=== PATIENT | female | born 1935 | race Caucasian/White ===

== ENCOUNTER → 2017-05-06 | Outpatient (CLI) | payer OTHER ==
[~2017-05-06] MED LIST: CALTRATE 600 +1 TAB PO; DYAZIDE 25 MG-31 CAP PO; FISH OIL 500MG500 MG PO; NEURONTIN100 MG PO; PRAVACHOL40 MG PO; SYNTHROID RP0.088 MG PO; VITAMIN D5000 I3 PO; VOLTAREN50 M1 PO; ZIAC 5 MG-6.25 MG PO
== END | disposition home or self-care (01) ==
LOC: US 18:31
DX: M79.605 Pain in left leg (principal)

== ENCOUNTER 2017-08-14 15:05 | Inpatient (IN) | payer OTHER ==
[~2017-08-14] VITALS: Ht 167.6 cm; Wt 105.0 kg
[~2017-08-14 15:05] MED LIST changes: -PRAVACHOL40 MG PO
[2017-08-14 15:16] VITALS: BP 210/110
[2017-08-14] MEDS ORDERED: PRAVACHOL40 MG PO (15:31)
[2017-08-14 16:28] LABS: BASO # 0.1 10*3/uL (0.0-0.1); BASO % 0.7 % (0.0-1.0); EOS # 0.1 10*3/uL (0.0-0.4); EOS % 1.5 % (1.0-4.0); HEMATOCRIT 46.9 % (37.0-47.0); HEMOGLOBIN 15.4 g/dl (12.0-16.0); LYMPH # 1.6 10*3/uL (1.3-4.4); LYMPH % 18.7 % (27.0-41.0); MEAN CELL VOLUME 92.3 fl (81.0-99.0); MEAN CORPUSCULAR HGB 30.3 pg (27.0-31.0); MEAN CORPUSCULAR HGB CONC 32.8 g/dl (33.0-37.0); MEAN PLATELET VOLUME 9.7 fl (9.6-12.3); MONO # 0.7 10*3/uL (0.1-1.0); MONO % 8.4 % (3.0-9.0); NEUT # 5.9 10*3/uL (2.3-7.9); NEUT % 70.3 % (47.0-73.0); PLATELET COUNT AUTOMATED 202 10*3/uL (130-400); RED BLOOD COUNT 5.08 10*6/uL (4.10-5.10); RED CELL DISTRI WIDTH 13.2 % (0-14.5); WHITE BLOOD COUNT 8.4 10*3/uL (4.8-10.8)
[2017-08-14 16:35] LABS: INTERNATIONAL NORM RATIO 0.9 (2.0-3.5)
[2017-08-14 16:44] LABS: ALBUMIN 3.7 gm/dl (3.1-4.5); ALKALINE PHOSPHATASE 55 U/L (45-117); BUN 25 mg/dl (7-24); CHLORIDE 105 mmol/L (98-107); CREATININE 0.98 mg/dL (0.55-1.02); LIPASE 147 U/L (73-393); MAGNESIUM 2.2 mg/dL (1.5-2.1); POTASSIUM 4.3 mmol/L (3.5-5.1); SGOT/AST 20 IU/L (3-35); SGPT/ALT 21 U/L (12-78); SODIUM 141 mmol/L (136-145)
[2017-08-14 16:47] LABS: TROPONIN I < 0.015 ng/ml (<0.045)
[2017-08-14 17:48] VITALS: BP 195/80
--- NOTE | 2017-08-14 18:35 | NUR ---
patient has been waiting for an xray for over 2 hours... machine was done... patient just now taken to xray then will be taken upstairs...
[2017-08-14 18:47] VITALS: BP 195/87
--- NOTE | 2017-08-14 18:47 | NUR ---
A 81, admitted to , under the services of MINNIE Jenkins DO with a diagnosis of ACCELERATED HYPERTENSION AND FALLS. Chief complaint is MULTIPLE FALLS WITHIN THE PAST 10 DAYS. Patient arrived via wheel chair from ER. Monitor applied. Initial assessment completed. Vital signs taken and recorded. MINNIE JENKINS DO notified of admission to the unit. Orders received. See assessment for past medical history, medications and allergies. Patient and/or family oriented to unit. [facility] visitation policy reviewed. Clothing/patient valuable form completed. ARI NAVA A
[2017-08-14 19:05] VITALS: BP 195/87
[2017-08-14 20:26] VITALS: BP 186/73
[2017-08-15] VITALS (7 sets, daily range): BP systolic 142–175; BP diastolic 60–76
--- NOTE | 2017-08-15 01:05 | NUR ---
CALLED FOR PAIN MEDICATION PER PT. NEW ORDERS RECEIVED. SEE DEC.
--- NOTE | 2017-08-15 01:21 | NUR ---
PT REQUESTED PAIN MEDICATION. NORCO GIVEN FOR BACK PAIN. ACHING AND CONSTANT. PT RATES PAIN AT 5 OUT OF 10.
--- NOTE | 2017-08-15 03:04 | NUR ---
24HR CHART CHECK COMPLETE.
[2017-08-15 06:02] LABS: BASO # 0.1 10*3/uL (0.0-0.1); EOS # 0.1 10*3/uL (0.0-0.4); EOS % 2.2 % (1.0-4.0); HEMATOCRIT 42.4 % (37.0-47.0); HEMOGLOBIN 14.1 g/dl (12.0-16.0); LYMPH # 1.7 10*3/uL (1.3-4.4); LYMPH % 26.6 % (27.0-41.0); MEAN CELL VOLUME 90.4 fl (81.0-99.0); MEAN CORPUSCULAR HGB 30.1 pg (27.0-31.0); MEAN CORPUSCULAR HGB CONC 33.3 g/dl (33.0-37.0); MEAN PLATELET VOLUME 10.2 fl (9.6-12.3); MONO # 0.6 10*3/uL (0.1-1.0); MONO % 8.9 % (3.0-9.0); NEUT # 3.9 10*3/uL (2.3-7.9); PLATELET COUNT AUTOMATED 197 10*3/uL (130-400); RED BLOOD COUNT 4.69 10*6/uL (4.10-5.10); RED CELL DISTRI WIDTH 13.2 % (0-14.5); WHITE BLOOD COUNT 6.3 10*3/uL (4.8-10.8)
[2017-08-15 06:36] LABS: ALBUMIN 3.4 gm/dl (3.1-4.5); BUN 20 mg/dl (7-24); CHLORIDE 106 mmol/L (98-107); POTASSIUM 3.6 mmol/L (3.5-5.1); SODIUM 141 mmol/L (136-145)
[2017-08-15 06:46] LABS: ALKALINE PHOSPHATASE 44 U/L (45-117); CHOLESTEROL 153 mg/dL (<200); CREATININE 0.72 mg/dL (0.55-1.02); HDL CHOLESTEROL 63 mg/dl (40-60); LDL CHOLESTEROL 74 mg/dL (9-159); SGOT/AST 17 IU/L (3-35); SGPT/ALT 18 U/L (12-78); TOTAL PROTEIN 6.3 gm/dL (6.4-8.2); TRIGLYCERIDES 81 mg/dl (<150); VLDL CHOLESTEROL 16 mg/dL (6-40)
--- NOTE | 2017-08-15 09:30 | NUR ---
VERIFIED MEDICATIONS OVER THE PHONE WITH [facility].
[2017-08-15] MEDS ORDERED: SYNTHROID,LEVO75 MCG PO ×2 (10:12)
[2017-08-15] MEDS ORDERED: NORCO 5-325 TA1 EACH PO (10:13)
[2017-08-15] MEDS ORDERED: DYAZIDE 37.5-21 EACH PO (10:16)
[2017-08-15] MEDS ORDERED: NEURONTIN300 MG PO (10:17)
[2017-08-15] MEDS ORDERED: ZIAC 10-6.25 M1 EACH PO ×2 (10:18→10:20)
[2017-08-15] MEDS ORDERED: ZIAC 5 MG-6.25 MG PO (10:19)
--- NOTE | 2017-08-15 21:28 | NUR ---
PT GIVEN NORCO 5/325 MG TABELT PO FOR C/O BACK PAIN, RATING IT A 4 OUT 10. PT GIVEN BISCODYL PO FOR C/O CONSTIPATION. WILL MONITOR FOR EFFECTIVENESS. LYING IN BED AT THIS TIME. COOPERATIVE AND PLEASANT. CALL LIGHT IN REACH.
--- NOTE | 2017-08-15 22:28 | NUR ---
PT NORCO EFFECTIVE. RESTING IN BED, CALL LIGHT IN REACH.
[2017-08-16] VITALS: BP 143/77; BP 153/86
--- NOTE | 2017-08-16 03:59 | NUR ---
24 HR chart check completed.
--- NOTE | 2017-08-16 04:00 | NUR ---
PT RESTING PEACEFULLY IN BED. NO S/S OF DISTRESS. RESPIRATIONS EASY AND UNLABORED, CALL LIGHT IN REACH.
[2017-08-16 08:00] VITALS: BP 150/68
[2017-08-16 12:00] VITALS: BP 150/65
--- NOTE | 2017-08-16 14:47 | NUR ---
PHYSICAL THERAPY Physical Therapy Evaluation completed this date. See eval document for further details. Will begin PT intervention to address the impairments of muscle weakness and difficulty ambulating. Recommend SNF [place] d[place] [address] based on chart review and PT eval. Nika Piedra, PT
[2017-08-16 15:19] VITALS: BP 158/85
--- NOTE | 2017-08-16 15:53 | NUR ---
Occupational Therapy evaluatio completed this date on 4 with full eval to follow. Precautions include fall risk, h/o multiple recent falls. scoliosis, moderate complexity level 23757. Recommend OT per POC and SNF upon d/c to enable safe return home alone at [facility]. Thank you for this referral. Leidy Hubbard OTR/L
[2017-08-16 16:00] VITALS: BP 170/90
--- NOTE | 2017-08-16 17:13 | NUR ---
ATTEMPTED TO RECONCILE MEDS PT DOES NOT KNOW HER DOSES, BUT DOES KNOW HOW MANY TIME A DAY TO TAKE HER PILLS SHE HAS GIVEN THE ER HER ONLY DETAILED LIST AND IT HAS BEEN MISPLACED
--- NOTE | 2017-08-16 20:06 | NUR ---
PT. RESTING IN BED. HEP LOCK IN RH ASYMPT. LUNGS CLEAR BILAT, PULSE OX 97% ON RA. ABDOMEN SOFTLY DISTENDED AND NORMOK. NO PERIPHERAL EDEMA NOTED. L KNEE REPLACEMENT NOTED. KNEE HIGH TULIO BOLAÑOS BILAT ROVERTO DOWNEY RN
[2017-08-16 20:10] VITALS: BP 152/58
--- NOTE | 2017-08-16 22:00 | NUR ---
PT. GIVEN DULCOLAZ AT 2136 FOR COMPLAINTS OF CONSTIPATION AND NORCO AT 2133 FOR GENERALIZED ACHES AND PAINS, ESPECIALLY IN LEFT KNEE. ROVERTO DOWNEY RN
[2017-08-17] VITALS: BP 155/71
--- NOTE | 2017-08-17 00:09 | NUR ---
PT. SLEEPING, NORCO EFFECTIVE.
[2017-08-17 06:07] LABS: BASO # 0.1 10*3/uL (0.0-0.1); EOS # 0.2 10*3/uL (0.0-0.4); HEMATOCRIT 43.7 % (37.0-47.0); HEMOGLOBIN 14.5 g/dl (12.0-16.0); LYMPH # 1.8 10*3/uL (1.3-4.4); LYMPH % 27.8 % (27.0-41.0); MEAN CELL VOLUME 89.9 fl (81.0-99.0); MEAN CORPUSCULAR HGB 29.8 pg (27.0-31.0); MEAN CORPUSCULAR HGB CONC 33.2 g/dl (33.0-37.0); MEAN PLATELET VOLUME 9.9 fl (9.6-12.3); MONO # 0.7 10*3/uL (0.1-1.0); MONO % 10.5 % (3.0-9.0); NEUT # 3.6 10*3/uL (2.3-7.9); NEUT % 57.2 % (47.0-73.0); PLATELET COUNT AUTOMATED 181 10*3/uL (130-400); RED BLOOD COUNT 4.86 10*6/uL (4.10-5.10); RED CELL DISTRI WIDTH 13.2 % (0-14.5); WHITE BLOOD COUNT 6.3 10*3/uL (4.8-10.8)
[2017-08-17 06:37] LABS: BUN 27 mg/dl (7-24); CHLORIDE 105 mmol/L (98-107); POTASSIUM 3.8 mmol/L (3.5-5.1); SODIUM 139 mmol/L (136-145)
[2017-08-17 08:00] VITALS: BP 152/68
--- NOTE | 2017-08-17 08:11 | NUR ---
Received snf order for rehab. In to discuss with patient who is agreeable. Provided list of facilities, patient stated she has been to [facility] in [facility] in the past and would like to go there again. Contacted [facility], faxed referral. Once accepted, precert will be started. Waiting on acceptance/auth.
--- NOTE | 2017-08-17 08:19 | NUR ---
PHYSICAL THERAPY Patient presented to therapy in seated position with report of L LE weakness and pain. Patient also states that her L LE fiona at times when walking. Patient performed sit to stand transfer with Close Supervision. Patient donned gown with CGA X 1 for balance support. Patient performed gait with W/W and CGA X 1 to Min. A X 1 for 100' X 1 with occassional standing rest breaks required due to the L LE wanting to buckle. Patient then performed seated ther ex x 20 reps each in all planes of mvmt. Patient was left in seated position with call light within reach. Patient was 1:1 with this EMERGENCY SPILL RESPONSE TECHNICIAN for 25 minutes total. Vernon Stauffer EMERGENCY SPILL RESPONSE TECHNICIAN
--- NOTE | 2017-08-17 08:43 | NUR ---
[facility], waiting on auth
[2017-08-17 12:00] VITALS: BP 141/58
--- NOTE | 2017-08-17 13:18 | NUR ---
PATIENT SEEN OT 1:1 THIS DATE 15 MINUTES. PATIENT IDENTIFIED BY NAME AND DATE OF . PATIENT COMPLETED FUNCTIONAL XFERS STS FROM RECLINER CGA AND AMBULATION USE FWW TO BATHROOM CGA WITH VERBAL CUES PACE SELF AND FWW MANAGEMENT. PATIENT COMPLETED TOILETING SUPERVISION. COMPLETED STANDING TOLERANCE ACTIVTITY APPROX 1 MINUTE X 3 ATTEMPTS CGA WITH C/O FATIGUE USE FWW. FRANCISCO BOWMAN
[2017-08-17 16:00] VITALS: BP 141/85
--- NOTE | 2017-08-17 19:49 | NUR ---
PT. UP IN CHAIR. DAUGHTER AT BEDSIDE. PICC IN RIGHT UPPER ARM ASYMPT. LUNGS DIMINISHED BUT CLEAR BILAT. ABDOMEN SOFTLY DISTENDED, NORMO, OBESE. NO PERIPHERAL EDEMA NOTED. RESP. EASY AND REG, NO DISTRESS. PT USES WALKER TO AMBULATE TO RESTROOM WITH ASSIST. ROVERTO DOWNEY RN
[2017-08-17 20:00] VITALS: BP 139/67
--- NOTE | 2017-08-17 21:32 | NUR ---
PT. GIVEN DULCOLAX, RESTORIL AND NORCO ORDERED PER PT REQUEST DUE TO CONSTIPATION, SLEEP AIDE AND GENERALIZED PAIN RELIEF. ROVERTO DOWNEY RN
--- NOTE | 2017-08-17 23:14 | NUR ---
PT. SLEEPING, NORCO AND RESTORIL EFFECTIVE.
[2017-08-18] VITALS: BP 131/51
[2017-08-18 04:00] VITALS: BP 118/62
--- NOTE | 2017-08-18 07:48 | NUR ---
Shift chart check completed.24 HR chart check completed. During bedside report patient is alert and oriented, in no acute distress.
[2017-08-18 08:00] VITALS: BP 130/58
--- NOTE | 2017-08-18 09:38 | NUR ---
PHYSICAL THERAPY Bouchra seen this AM 1:1 for her physical therapy session. Pt supine in bed, transfer supine/sit slow with MIN A X 1, sitting balance X 7 min supervision X 1, and went over act Ex to bilateral LE on what she should be doing with rest as needed. Sit/stand and up on standard walker working standing balance, weight shift X 2, one sitting rest. Bouchra said that she does not feel as strong as yesterday. Then gait 4' to her bedside chair MOD A X 1 with standard walker and another weight shift, marching in place and sit to rest. Then another marching in place MOD SPEEDER TENDER X 1, with her walker, followed bu sit to rest. End with act Ex to bilateral LE with marching, LAq's, and ankle pumps X 25 reps and to work this in every hour today and i will check back later. STACI SEO WINE CELLAR WORKER.
[2017-08-18 12:00] VITALS: BP 130/56
--- NOTE | 2017-08-18 13:04 | NUR ---
PHYSICAL THERAPY Pt seen this PM 1:1 for her therapy. Pt was up in her bedside chair and just finished her lunch. Went over with Bouchra her act Ex, transfer up and gait. Transfer sit/stand MOD A X 1, standing balance with wheeled walkerMIN A X 1. Then gait 9' X 2, with two sitting rest. Followed by gait W/W 20' X 1, with MOD VACUUM CASTER X 1, and verbal cueing for gait safety no LOB but Pt is weak, up in her bedside chair. Followed by act Ex to bilateral LE of marching, LAQ's, and ankle pumps X 40 reps each, Pt with call light and phone. STACI SEO LINEN ROOM WORKER.
[2017-08-18 16:00] VITALS: BP 150/68
[2017-08-18 20:00] VITALS: BP 125/69
[2017-08-19] VITALS: BP 151/71
[2017-08-19 08:00] VITALS: BP 158/78
--- NOTE | 2017-08-19 08:03 | NUR ---
Shift chart check completed.
--- NOTE | 2017-08-19 10:50 | NUR ---
PHYSICAL THERAPY Patient seen this am 1:1 for therapy sitting up in bedside chair and was very pleasant upon therapist arrival, voicing only mild L LE weakness. Patient presented with L LE AFO brace and performed seated B LE therex, x 20 reps each to increase LE strength. Patient transfers CGA x 1 and ambulated with use of wh walker, 100' x 1, CGA, demmonstrating Poor upright posture and antalgic, slow gait pattern. Patient also required several standing rest breaks to complete ex secondary to increased bouts of fatigue due to muscle weakness and decreased activity tolerance. Patient returned to bedside chair and remained with call light, tray table and telphone. Will continue per POC to imoprove safe, functioanl transfers and mobility as tolerated. Richard Montague, ASSEMBLING MACHINE OPERATOR
--- NOTE | 2017-08-19 11:10 | NUR ---
Patient seen OT 1:1 this date for 20 minutes. Patient identified by name and . Patient completed funcitonal transfers STS from recliner to bathroom with FWW. Patient required CGA for safe STS transfer. Patient required CGA for safe functional mobility to bathroom with 1 LOB noted. Patient demonstrated safe manuverability of FWW in bathroom. Patient educated on safety with FWW when sitting in recliner (pushed walker to side vs keeping walker in front until end of transfer). Unique Lewis OTR/L
--- NOTE | 2017-08-19 11:44 | NUR ---
Faxed requested updated therapy notes and progress notes for precert, still waiting on auth
[2017-08-19 12:00] VITALS: BP 125/74
--- NOTE | 2017-08-19 15:15 | NUR ---
ASSUMED CARE OF PT AT THIS TIME, RESPS EASY AND NONLABORED WITH NO S.S OF DISRESS CALL LIGHT WITH IN REACH
[2017-08-19 16:00] VITALS: BP 152/76
[2017-08-19 20:00] VITALS: BP 139/67
[2017-08-20] VITALS: BP 149/72
[2017-08-20 06:44] LABS: BASO # 0.1 10*3/uL (0.0-0.1); BASO % 0.9 % (0.0-1.0); EOS # 0.2 10*3/uL (0.0-0.4); EOS % 2.8 % (1.0-4.0); HEMOGLOBIN 14.9 g/dl (12.0-16.0); LYMPH # 1.7 10*3/uL (1.3-4.4); LYMPH % 30.6 % (27.0-41.0); MEAN CELL VOLUME 90.5 fl (81.0-99.0); MEAN CORPUSCULAR HGB 30.7 pg (27.0-31.0); MEAN CORPUSCULAR HGB CONC 33.9 g/dl (33.0-37.0); MEAN PLATELET VOLUME 10.2 fl (9.6-12.3); MONO # 0.7 10*3/uL (0.1-1.0); MONO % 11.9 % (3.0-9.0); NEUT % 53.4 % (47.0-73.0); PLATELET COUNT AUTOMATED 179 10*3/uL (130-400); RED BLOOD COUNT 4.86 10*6/uL (4.10-5.10); RED CELL DISTRI WIDTH 13.1 % (0-14.5); WHITE BLOOD COUNT 5.6 10*3/uL (4.8-10.8)
[2017-08-20 07:05] LABS: CREATININE 1.24 mg/dL (0.55-1.02)
[2017-08-20 08:00] VITALS: BP 143/62
--- NOTE | 2017-08-20 09:03 | NUR ---
Received authorization for patient to go to [facility] in [facility]. patient can go when ready for discharge.
--- NOTE | 2017-08-20 09:50 | NUR ---
PHYSICAL THERAPY Bouchra seen this AM 1:1 for her therapy session. Pt was supine in bed, transfer supine/sit CG X 1, sitting balance supervisiopn x 1, X 4 min no LOB. Sit/stand and standing balance with wheeled walker CGA X 1. Followed by gait 25' X 1, into pt's bathroom, followed by washing and drying her hands, then another 25' X 1, with slow antalgic gait, up in her bedside chair with no LOB. End with act Ex to bilateral LE of marching, LAQ's, ankle pumps X 40 reps each with little cueing now, Pt with call light and phone. STACI SEO EDITOR SCHOOL PHOTOGRAPH.
--- NOTE | 2017-08-20 11:28 | NUR ---
PATIENT SEEN 1:1 OT 25 MINUTES THIS DATE. PATIENT IDENTIFIED BY NAME AND . PATIENT SEATED IN RECLINER AND REPORTS ALREADY BATHED AND DRESSED. PATIENT COMPLETED STS FROM RECLINER CGA AND AMBULATED SHORT DISTANCE CGA USE FWW WITH INSTABILTY NOTED AND VERBAL CUES REQUIRED INCREASE STANCE AND VERBAL CUES SAFETY TURNS STAND TO SIT RECLINER CGA. PATIENT COMPLETED SEATED REST BREAK THEN COMPLETED STAND TOLERANCE ACTIVITY USE FWW AND REACHING ABOVE HEAD ONE HAND CGA 2 MINUTES STAND TOLERANCE X 2 TRIALS. PATIENT REQUIRED VERBAL CUES INCREASE BASE OF SUPPORT FOR SAFETY. PATIENT COMPLETED SEATED REST BREAK. PATIENT COMPLETED SIT TO STAND RECLINER CGA AND AMBULATED TO BED CGA WITH VERBAL CUES FWW MANAGEMENT SAFETY AND STAND TO SIT CGA BED AND THEN AMBULATED USE FWW BACK TO RECLINER CGA USE FWW. PATIENT C/O NO PAIN. FRANCISCO TRAMMELL/Mikie
[2017-08-20 12:00] VITALS: BP 148/82
[2017-08-20] MEDS ORDERED: NORCO 5-325 TA1 EACH PO (12:18)
[2017-08-20] MEDS ORDERED: LOPRESSOR25 MG PO (12:18)
[2017-08-20] MEDS ORDERED: Synthroid,Levo50 MCG PO (12:18)
--- NOTE | 2017-08-20 14:15 | NUR ---
Discharge instructions reviewed with patient/family. Patient receptive and verbalizes understanding. Follow-up care arranged. Written instructions given to patient/family. Heplock discontinued. Patient refused the pnrumovax. Call report to [facility]. Picked up by son Silvano. JUSTO MILLS
--- NOTE | 2017-08-23 07:51 | NUR ---
PHYSICAL THERAPY CO-SIGN I approve of the Phyical Therapy notes written above. BRYAN LEVI PT
--- NOTE | 2017-08-23 07:59 | NUR ---
OCCUPATIONAL THERAPY CO-SIGN I approve of the Occupational Therapy notes written above. LISA ORTIZ OTR/Mikie
== END 2017-08-20 14:15 | disposition other institution (70) | DRG 305 ==
LOC: ED 15:05 → EDHOLD 17:55 → 4E 17:55
PROVIDERS: Family Medicine; Internal Medicine; Physician Assistant; ADMIT Internal Medicine
DX: I16.0 Hypertensive urgency (principal); N17.9 Acute kidney failure, unspecified; E03.9 Hypothyroidism, unspecified; G89.29 Other chronic pain; E78.5 Hyperlipidemia, unspecified; M54.5 Low back pain; E55.9 Vitamin D deficiency, unspecified; R29.6 Repeated falls; I10 Essential (primary) hypertension; Z88.0 Allergy status to penicillin; Z98.42 Cataract extraction status, left eye; Z98.41 Cataract extraction status, right eye; Z90.710 Acquired absence of both cervix and uterus; Z79.899 Other long term (current) drug therapy; Z80.9 Family history of malignant neoplasm, unspecified; W18.39XA Other fall on same level, initial encounter; Y93.89 Activity, other specified; Y92.098 Other place in other non-institutional residence as the place of occurrence of the external cause; Y99.8 Other external cause status

== ENCOUNTER 2019-03-16 11:13 | Inpatient (IN) | payer OTHER ==
[2019-03-16] VITALS (8 sets, daily range): BP systolic 126–151; BP diastolic 59–80
[~2019-03-16] VITALS: Ht 167.6 cm; Wt 103.6 kg
--- NOTE | ~2019-03-16 | O ---
[place], [place] OPERATIVE NOTE NAME: JAZMYN MARKHAM [facility] #: [id number] UNIT #: [id number] ROOM: 411 DOCTOR: RAFAEL DOKARENA Fafran BIRTHDATE: [birth year] DOS: 03/16/2019 PREOPERATIVE DIAGNOSIS: Abscess, plantar left foot with apparent infected bursa possible osteomyelitis. POSTOPERATIVE DIAGNOSIS: Abscess, plantar left foot with apparent infected bursa possible osteomyelitis, pending pathology. PROCEDURE: Incision and drainage of left foot with excision of soft tissue mass/bursa, bone biopsy, plantar left navicular. ESTIMATED BLOOD LOSS: 10 mL. SPECIMEN: Soft tissue mass/bursa left foot bone, left navicular. TECHNICAL NOTES PACKIN-inch plain packing. CASTING COORDINATOR: Dr. Liam Chavez. ANESTHESIA: LMAC. PROCEDURE DETAILS: The patient was brought to the operating room and placed on the operating table in supine position. Anesthesia and administered per Anesthesia Department. Local infiltration of 10 mL of 0.5% Marcaine plain was utilized for local block. The left foot was prepped and draped in usual aseptic manner. No tourniquet was used during the procedure. Ulceration was noted to the plantar foot where purulent drainage was noted. The incision was lengthened in a curvilinear fashion approximately total of 6 cm distal to proximal. The incision was deepened via sharp and blunt dissection, avoiding neurovascular structures in the area within the subcutaneous tissue to the level of soft tissue mass consistent with infected bursa, which was excised in toto and sent to pathology. All aspects of the wound were probed with a [place] elevator and freed and drained of the surrounding drainage. There was a pocket of serous drainage overlying the plantar left navicular, which was incised in a sample of the bone, was obtained with a Jamshidi needle to verify no osteomyelitis had progressed this time. The areas were then copiously flushed with sterile saline with pulse power irrigation. Next, a sterile compressive dressing consisting of 1 inch plain packing, 4 x 4s, ABD pads, Kerlix, and Mahesh bandage was applied. The patient tolerated procedures and anesthesia well and left the OR with vital signs stable and neurovascular status intact. The patient will resume previous orders at the nursing unit, antibiotics per Infectious Disease. We will order wound VAC tomorrow and see the patient accordingly. [place], [place] OPERATIVE NOTE NAME: JAZMYN MARKAHM UNIT #: [id number] ROOM: 411 DOCTOR: KARENA HALL DPM BIRTHDATE: [birth year] KARENA HALL DPM CM:OPRECORD:OPERATIVE NOTE [id number] KARENA HALL DPM 03/24/19 1342 interface
--- NOTE | ~2019-03-16 | EKG ---
[place], [place] ELECTROCARDIOGRAM REPORT NAME: JAZMYN MARKHAM UNIT #: [id number] ROOM: 411 DOCTOR: EPIPHANY DRAFT REPORT BIRTHDATE: [birth year] [facility] Test Date: 2019-03-16 Test Time: 12:19:12 Pat Name: JAZMYN MARKHAM Department: Room: 411 Gender: F Corrections Cadet: Zenaida Ray : 1935 Requested By: SURYA GOLDBERG DNP Order Number: [id number] Reading MD: Stephen Castellano MD Measurements Intervals [place] Rate: 53 P: MS: QRS: -35 QRSD: 115 T: 3 QT: 437 QTc: 411 Interpretive Statements Atrial fibrillation Nonspecific intraventricular conduction delay Borderline T abnormalities, diffuse leads Compared to ECG 03/02/2019 15:11:30 Intraventricular conduction delay now present Left-axis deviation no longer present T-wave abnormality still present Electronically Signed On 03-17-2019 9:46:13 PDT by Stephen Castellano MD CM:EKGRPT:ELECTROCARDIOGRAM REPORT [id number] SURYA GOLDBERG DNP EPIPHANY DRAFT REPORT SURYA GOLDBERG DNP
--- NOTE | ~2019-03-16 | PR ---
[place], [place] PROGRESS NOTE NAME: JAZMYN MARKHAM UNIT #: [id number] ROOM: 411 DOCTOR: JULIETTE LICEA BIRTHDATE: [birth year] DOS: 03/18/2019 SUBJECTIVE: The patient is being followed for a left foot abscess, infected bursa and possible osteomyelitis. She underwent I and D with a sample being taken of the left navicular bone. She now has a wound VAC in place. She remains on vancomycin and cefepime. She was on oral antibiotics up until couple of days prior to her admission and surgery, her blood cultures remain sterile. Gram stain from her surgery had no organisms and wound culture with no growth to date. Pathology is pending. She is alert and oriented, tolerating the antibiotics. Denies fever, chills, nausea, vomiting or diarrhea. No rash or itch. No cough or shortness of breath. VITAL SIGNS: Temperature 97.7, pulse 52, respirations 20, BP 130/61. LABORATORY DATA: No other labs other than her labs as reported above. PHYSICAL EXAMINATION: GENERAL: An 83-year-old female, in no acute distress, nontoxic in appearance. HEENT: Normocephalic, no thrush. LUNGS: Clear to auscultation bilaterally. Respirations even and unlabored. HEART: Regular rhythm. No murmur appreciated. ABDOMEN: Soft, nondistended. EXTREMITIES: Edema. Left foot with a wound VAC intact. SKIN: Warm, dry, free of rashes. Peripherals with hematomas. No phlebitis. ASSESSMENT: Left foot abscess, status post incision and drainage on the 03/16. PLAN: Follow up cultures. Continue empiric vancomycin and cefepime. I agree with the assessment and plan. I reviewed the labs and imaging and made the necessary changes in the note. JANUARY VINAYAK SEGOVIA [place], [place] PROGRESS NOTE NAME: JAZMYN MARKHAM UNIT #: [id number] ROOM: 411 DOCTOR: JULIETTE LICEAJANUARY BIRTHDATE: [birth year] Indu Mitchell MD CM:TRISTA 1420 1440 JANUARY JULIETTE [facility] 04/01/19 1511 interface
--- NOTE | ~2019-03-16 | O ---
[place], [place] OPERATIVE NOTE NAME[facility] [id number] UNIT #: [id number] ROOM: 411 DOCTOR: KARENA HALL DPM BIRTHDATE: [birth year] DOS: 03/16/2019 PREOPERATIVE DIAGNOSIS: Abscess, possible infected bursa possible osteomyelitis, plantar left arch. POSTOPERATIVE DIAGNOSIS: Abscess, possible infected bursa possible osteomyelitis, plantar left arch, pending pathology. PROCEDURE: Incision and drainage, left foot with bone biopsy and excision of mass. KARENA HALL DPM CM:OPRECORD:OPERATIVE NOTE [id number] KARENA HALL DPM 03/24/19 1332 interface
--- NOTE | ~2019-03-16 | PR ---
[place], [place] PROGRESS NOTE NAME: JAZMYN MARKHAM [facility] #: [id number] UNIT #: [id number] ROOM: 411 DOCTOR: JULIETTE LICEAJANUARY BIRTHDATE: [birth year] DOS: 03/19/2019 SUBJECTIVE: The patient is an 83-year-old female who is being followed for foot abscess and possible osteomyelitis. She is status post surgical debridement by Podiatry. Operative cultures remained sterile. She remains on vancomycin and cefepime. I reviewed her older cultures as well from 02/28/2019, which were also no growth. She is alert and oriented, tolerating her antibiotics. Denies fevers, chills, nausea, vomiting or diarrhea. No rash or itch. No cough or shortness of breath. She is complaining of back pain, which she is attributing to the bed. Gram stain from surgery had no organisms. Pathology is pending. She has had no fevers overnight. LABORATORY DATA: Cultures as reviewed above. Vancomycin trough is 10.7. PHYSICAL EXAMINATION: VITAL SIGNS: Temperature 97.5, pulse 66, respirations 20, BP 144/93. GENERAL: An 83-year-old female, obese, in no acute distress. HEAD, EYES, EARS, NOSE, AND THROAT: Normocephalic, no thrush. LUNGS: Clear to auscultation bilaterally. Respirations even and unlabored. HEART: Irregular rhythm. No murmur appreciated. ABDOMEN: Soft, nondistended. EXTREMITIES: No edema. Left foot with a wound VAC in place, wrapped. SKIN: Otherwise, warm and dry, free of rashes. ASSESSMENT: Left foot abscess, status post I and D on 03/16/2019. PLAN: Her cultures remained sterile. She was on antibiotics up to 2-3 days prior to her surgery and her prior cultures were also sterile. We will await pathology. Continue vancomycin and cefepime. She is to be discharged with her wound VAC as per Podiatry. She did fail oral antibiotics as an outpatient. I agree with the assessment and plan, made the necessary changes in the note. We reviewed the labs and imaging. JANUARY VINAYAK SEGOVIA [place], [place] PROGRESS NOTE NAME: JAZMYN MARKHAM UNIT #: [id number] ROOM: 411 DOCTOR: JULIETTE LICEA,JANUARY BIRTHDATE: [birth year] Indu MD Paula CM:PNOTTO 1715 1751 JANUARY JULIETTE LICEA 04/01/19 1512 interface
[~2019-03-16 11:13] MED LIST changes: +CEFDINIR300 MG PO; +DOXYCYCLINE100 M3 PO; +DYAZIDE 37.5-21 EACH PO; +HYDROCHLOROTH12.5 M3 PO; +HYDROCODONE-AC1 EAC1 PO; +LEVOXYL75 MCG PO; +LOPRESSOR25 MG PO; +NEURONTIN600 MG PO; +NORCO 5-325 TA1 EACH PO; +PRAVACHOL40 MG PO; +STOOL SOFTENER100 M3 PO; +SYNTHROID,LEVO75 MCG PO; +Synthroid,Levo50 MCG PO; +TYLENOL325 M2 PO; +ZESTRIL40 MG PO; +ZIAC 10-6.25 M1 EACH PO
[2019-03-16 12:32] LABS: BASO # 0.1 10*3/uL (0.0-0.1); BASO % 0.9 % (0.0-1.0); EOS # 0.1 10*3/uL (0.0-0.4); EOS % 0.5 % (1.0-4.0); HEMATOCRIT 42.8 % (37.0-47.0); HEMOGLOBIN 13.6 g/dl (12.0-16.0); LYMPH # 1.4 10*3/uL (1.3-4.4); LYMPH % 14.9 % (27.0-41.0); MEAN CELL VOLUME 94.1 fl (81.0-99.0); MEAN CORPUSCULAR HGB 29.9 pg (27.0-31.0); MEAN CORPUSCULAR HGB CONC 31.8 g/dl (33.0-37.0); MEAN PLATELET VOLUME 10.3 fl (9.6-12.3); MONO # 0.8 10*3/uL (0.1-1.0); MONO % 8.8 % (3.0-9.0); NEUT # 6.8 10*3/uL (2.3-7.9); NEUT % 74.4 % (47.0-73.0); PLATELET COUNT AUTOMATED 218 10*3/uL (130-400); RED BLOOD COUNT 4.55 10*6/uL (4.10-5.10); RED CELL DISTRI WIDTH 13.2 % (0-14.5); WHITE BLOOD COUNT 9.2 10*3/uL (4.8-10.8)
[2019-03-16 12:41] LABS: ACT PARTIAL THROMBO TIME 25.1 SECONDS (20.0-32.1)
[2019-03-16 12:49] LABS: ALBUMIN 2.8 gm/dl (3.1-4.5); ALKALINE PHOSPHATASE 60 U/L (45-117); BUN 27 mg/dl (7-24); CHLORIDE 107 mmol/L (98-107); CREATININE 1.22 mg/dL (0.55-1.02); SGOT/AST 23 IU/L (3-35); SGPT/ALT 22 U/L (12-78); SODIUM 142 mmol/L (136-145); TOTAL PROTEIN 6.2 gm/dL (6.4-8.2)
[2019-03-16 12:52] LABS: TROPONIN I < 0.015 ng/ml (<0.045)
--- NOTE | 2019-03-16 13:30 | NUR ---
Time: 1329 A 83 year old FEMALE admitted to 4E under services of LACHELLE CAMPOS DO. Pt. arrived via stretcher from ER. Chief complaint: LEFT FOOT ABSCESS; SENT FROM DR. HALL'S OFFICE FOR I & D OF THE FOOT TODAY AT 4PM IN THE OR. SHYLA VILLALOBOS
--- NOTE | 2019-03-16 15:50 | NUR ---
MEDICATED WITH PRN IV MORPHINE FOR C/O CHEST PAIN.
--- NOTE | 2019-03-16 16:12 | NUR ---
DR. DESAI NOTIFIED OF CONSULT.
--- NOTE | 2019-03-16 17:49 | NUR ---
PATIENT IN OR AT THIS TIME FOR I & D LEFT FOOT.
--- NOTE | 2019-03-16 18:15 | NUR ---
PATIENT BACK FROM OR PROCEDURE, SHE IS ALERT AND ORIENTED, VISITING WITH HER DAUGHTER AND ORDERING SUPPER. BULKY POST OP DRESSING TO LEFT FOOT INTACT, ORDER WAS ENTERED BY PODIATRY CONSULT FOR WOUND VAC AND DRESSING SUPPLIES TO BE PLACED IN ROOM FOR APPLICATION OF WOUND VAC TO LEFT FOOT TOMORROW. NURSING SUPERCVISOR NOTIFIED.
--- NOTE | 2019-03-16 20:05 | NUR ---
24 HOUR CHART CHECK COMPLETE.
--- NOTE | 2019-03-16 21:57 | NUR ---
NEW IV RESTARTED ON THE SIDE OF THE RIGHT ARM. OLD IV SITE REMOVED DUE TO INFILTRATION AND A SMALL AMOUNT OF PAIN PER PT AT THE SITE. FLUIDS NOW RUNNING THROUGH NEW IV SITE WITH EASE. CALL LIGHT WITHIN REACH, WILL MONITOR
--- NOTE | 2019-03-16 22:07 | NUR ---
NOTIFIED DR. ZAPATA OF PATIENT MED REC BEING FINISHED ON DAYLIGHT, BUT NOBODY EVER CONTINUING HER HOME MEDICATIONS. HE STATED THAT HE WOULD TAKE CARE OF IT
--- NOTE | 2019-03-16 23:15 | NUR ---
PRN NORCO ADMINSTERED PRESCRIBED FOR 4/10 LT FOOT PAIN. WILL CONTINUE TO MONITOR THE PT AND REASSESS HER IN AN HOUR.
[2019-03-17] VITALS: BP 131/66
--- NOTE | 2019-03-17 00:04 | NUR ---
NORCO SEEMS TO BE EFFECTIVE. PT SLEEPING.
[2019-03-17 06:35] LABS: BASO # 0.1 10*3/uL (0.0-0.1); BASO % 0.9 % (0.0-1.0); EOS # 0.1 10*3/uL (0.0-0.4); EOS % 2.1 % (1.0-4.0); HEMATOCRIT 41.2 % (37.0-47.0); HEMOGLOBIN 12.8 g/dl (12.0-16.0); LYMPH # 1.4 10*3/uL (1.3-4.4); LYMPH % 24.7 % (27.0-41.0); MEAN CELL VOLUME 94.1 fl (81.0-99.0); MEAN CORPUSCULAR HGB 29.2 pg (27.0-31.0); MEAN CORPUSCULAR HGB CONC 31.1 g/dl (33.0-37.0); MEAN PLATELET VOLUME 10.3 fl (9.6-12.3); MONO # 0.6 10*3/uL (0.1-1.0); MONO % 10.5 % (3.0-9.0); NEUT # 3.5 10*3/uL (2.3-7.9); NEUT % 61.3 % (47.0-73.0); PLATELET COUNT AUTOMATED 204 10*3/uL (130-400); RED BLOOD COUNT 4.38 10*6/uL (4.10-5.10); RED CELL DISTRI WIDTH 13.2 % (0-14.5); WHITE BLOOD COUNT 5.7 10*3/uL (4.8-10.8)
[2019-03-17 06:49] LABS: BUN 21 mg/dl (7-24); CHLORIDE 110 mmol/L (98-107); CREATININE 0.98 mg/dL (0.55-1.02); SODIUM 144 mmol/L (136-145)
[2019-03-17 06:52] LABS: ACT PARTIAL THROMBO TIME 25.6 SECONDS (20.0-32.1); INTERNATIONAL NORM RATIO 0.9 (2.0-3.5)
[2019-03-17 06:54] LABS: CHOLESTEROL 106 mg/dL (<200); HDL CHOLESTEROL 53 mg/dl (40-60); LDL CHOLESTEROL 39 mg/dL (9-159); TRIGLYCERIDES 68 mg/dl (<150); VLDL CHOLESTEROL 14 mg/dL (6-40)
[2019-03-17 08:00] VITALS: BP 154/65
--- NOTE | 2019-03-17 08:08 | NUR ---
JAZMYN MARKHAM [id number] Please refer to the physician's history and physical for past medical history, comorbid conditions, and allergies. Diagnosis: ABSCESS CELLULITIS [place] Score: 20,LOW OR NO RISK WOUND DESCRIPTIONS: Wound Number: 1 Dressing intact to left foot with scant amount of strikethrough drainage noted. Dressing is not to be removed per podiatry order. Podiatry will be placing wound vac today once pt is seen this afternoon. Spoke with Dr. Chavez and informed him that supplies were on the unit for him. Surface the patient is resting on: Isoflex SKIN PREVENTION RECOMMENDATION: 1. Pressure redistribution support surface as appropriate 2. Elevate heels 3. Remove boots/TEDS every shift and reapply 4. Head of bed 30 degrees as tolerated 5. Assess nutrition and hydration 6. Manage moisture 7. Avoid the use of containment devices while in bed 8. Use absorptive products on surfaces limit layers of linens on bed 9. Turn and reposition every 1-2 hours in bed and every 1 hour in chair as tolerated 10. Weight shifts every 15 minutes while up in chair 11. Offloading with pillows or device to keep heels elevated off bed 12. Monitor skin at least every shift 13. Inspect under medical devices twice a day WOUND TREATMENT RECOMMENDATIONS: Await wound vac order per podiatry once placed this afternoon.
--- NOTE | 2019-03-17 09:00 | NUR ---
Boat Puller in to talk to patient. Patient states lives at home with alone. There are few steps in the home. Physician: mira keys Pharmacy: [facility] [place] [facility] services: none Patient's level of ADLs: MINIMAL ASSIST Patient has working utilities: all working DME: walker Follow-up physician's appointment after d/c: will be made by hospitalist nurse director upon discharge Does patient want to access PORTAL?: no Discharge plan discussed with patient, patient states she lives at home alone, she has a walker for ambulation, discussed with patient a discharge plan including a short term correction for rehab, dressing changes and possibly iv antibiotics, patient was inagreement. given choice of facilities she chose [facility], facilities planner will send referrals to both facilities and wait for acceptance. patient will need an insurance precert prior to being discharged to a SNF. RANDOLPH GERARD
[2019-03-17 09:26] LABS: VITAMIN D, 25-HYDROXY 27.8 ng/mL (30-100)
--- NOTE | 2019-03-17 10:40 | NUR ---
Occupational Therapy evaluation completed on 4 with full eval to follow. Precautions include fall risk, obesity,NWB LLE, awaiting wound vac per patient, high complexity level 39633 via chart review, testing and evaluation. Recommend OT per pOC and SNF to enable safe return home alone. Thank you for this referral. Leidy Hubbard OTR/L
--- NOTE | 2019-03-17 10:58 | NUR ---
PHYSICAL THERAPY Patient evaluated on 4, full evaluation to follow. Continue with PT as per plan of care with fall, NWB LLE, ma x(A) x 2 and acute debility precautions. Will require SNF. PAtient is high complexity via chart review, tests and evaluation: [id number]. Thank you for this referral. Emily Block,PT
--- NOTE | 2019-03-17 11:43 | NUR ---
Patient requested a referral to [facility]. Contacted [facility] and their facility and faxed initial referral. Explained patient will require a wound vac and probably IV ATB, unsure of which ones since cultures are pending. If patient is accepted, will require a precert.
[2019-03-17 12:00] VITALS: BP 136/84
--- NOTE | 2019-03-17 14:42 | NUR ---
Patient accepted to [facility]; Requires precert that will be started when patient is more stable for discharge. Facility aware they will need to aquire a wound vac.
[2019-03-17 16:00] VITALS: BP 158/85
[2019-03-17 20:00] VITALS: BP 138/81
[2019-03-18] VITALS: BP 108/54
[2019-03-18 08:00] VITALS: BP 101/60
[2019-03-18 12:00] VITALS: BP 130/61
[2019-03-18 14:08] LABS: ACID FAST SPEC PROCESSING Concentration (.)
--- NOTE | 2019-03-18 15:30 | NUR ---
Educated patient on PICC line use. 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 Patient was upset and became tearful. Nursing comfort measure and education provided.
[2019-03-18 16:00] VITALS: BP 158/68
--- NOTE | 2019-03-18 19:22 | NUR ---
Patients IV infiltrated. Nurse coming on to follow up. Patient does not have any IV medications due, PO intake is adequate.
--- NOTE | 2019-03-18 19:26 | NUR ---
RESTING IN BED WATCHING TV. DENIES ANY NEEDS OR COMPLAINTS AT THIS TIME. CALL LIGHT IS WITHIN REACH. ENCOURAGED TO USE CALL LIGHT FOR NEEDS. WILL MONITOR.
[2019-03-18 20:00] VITALS: BP 152/78
[2019-03-19] VITALS: BP 157/70
[2019-03-19 08:00] VITALS: BP 112/54
--- NOTE | 2019-03-19 09:27 | NUR ---
Per lab vanc trough not drawn, patient bathing.
[2019-03-19 12:00] VITALS: BP 144/93
[2019-03-19 16:00] VITALS: BP 186/85
--- NOTE | 2019-03-19 17:14 | NUR ---
[place] given per patient request for c/o back pain. Pain is rated 6/10. Will monitor.
--- NOTE | 2019-03-19 18:00 | NUR ---
Bob effective. Patient satisfied.
[2019-03-19 20:00] VITALS: BP 133/74
--- NOTE | 2019-03-19 20:30 | NUR ---
RESTING IN BED. DENIES ANY PAIN AT THIS TIME. VITALS STABLE. PULSE OX 95% ON ROOM AIR. WOUND VAC INTACT TO LEFT FOOT WITH SCANT AMOUNT BLOODY DRAINAGE IN TUBING.
--- NOTE | 2019-03-19 22:36 | NUR ---
MEDICATED WITH NORCO FOR COMPLAINTS OF BACK PAIN. RATES PAIN A 4 ON A PAIN SCALE OF 1-10
[2019-03-20] VITALS: BP 150/58
--- NOTE | 2019-03-20 00:06 | NUR ---
RESTING IN BED WITH EYES CLOSED. AWAKENS EASILY. DENIES ANY NEEDS OR COMPLAINTS AT THIS TIME. WOUND VAC IN PLACE. BILATERAL LOWER EXT ELEVATED OFF OF BED. DRESSING TO LEFT LOWER EXT DRY AND INTACT. BED IS IN LOWEST POSITION WITH WHEELS LOCKED. SIDE RAILS UP X2. CALL LIGHT IS WITHIN REACH. ENCOURAGED TO USE CALL LIGHT FOR NEEDS. WILL CONTINUE TO MONITOR.
[2019-03-20 06:39] LABS: BASO % 0.7 % (0.0-1.0); EOS # 0.1 10*3/uL (0.0-0.4); EOS % 2.4 % (1.0-4.0); HEMATOCRIT 39.4 % (37.0-47.0); HEMOGLOBIN 12.5 g/dl (12.0-16.0); LYMPH # 1.3 10*3/uL (1.3-4.4); LYMPH % 21.6 % (27.0-41.0); MEAN CELL VOLUME 92.3 fl (81.0-99.0); MEAN CORPUSCULAR HGB 29.3 pg (27.0-31.0); MEAN CORPUSCULAR HGB CONC 31.7 g/dl (33.0-37.0); MEAN PLATELET VOLUME 10.4 fl (9.6-12.3); MONO # 0.6 10*3/uL (0.1-1.0); MONO % 10.6 % (3.0-9.0); NEUT # 3.8 10*3/uL (2.3-7.9); PLATELET COUNT AUTOMATED 202 10*3/uL (130-400); RED BLOOD COUNT 4.27 10*6/uL (4.10-5.10); RED CELL DISTRI WIDTH 13.2 % (0-14.5); WHITE BLOOD COUNT 5.9 10*3/uL (4.8-10.8)
[2019-03-20 06:47] LABS: BUN 14 mg/dl (7-24); CHLORIDE 108 mmol/L (98-107); CREATININE 0.87 mg/dL (0.55-1.02); POTASSIUM 4.1 mmol/L (3.5-5.1); SODIUM 143 mmol/L (136-145)
[2019-03-20 08:00] VITALS: BP 159/72
--- NOTE | 2019-03-20 10:40 | NUR ---
PHYSICAL THERAPY Patient seen this am 1;1 for therapy visit and was supine in bed upon therapist arrival. Patient had several family members visiting this morning and presented with L LE wound vac. Patient voices no c/o's pain at this time and instructed on safe transfer technique due to NWB on L LE. Patient completed supine to sit EOB transfer with MOD A, then able to perform multiple sit to stand transfers, Min A with use of wh walker standing support. Patient demonstrated NWB status on L LE 50% of time during initial rise and 90% of time during static stand. Patient tolerates < 45 seconds static stand prior to quick onset of fatigue. Patient also able to complete seated R LE therex, AROM, all planes x 15 reps each before returning to supine in bed. Patient remained supine with B LE's elevated on 2 pillows and heel protector, including call light, tray table, cell phone and bed alarm for safety. Will continue per POC as tolerated, total treatment time 16 minutes. Richard Montague, PROCESS SERVER
[2019-03-20 12:00] VITALS: BP 123/49
[2019-03-20 16:00] VITALS: BP 168/82
--- NOTE | 2019-03-20 19:00 | NUR ---
PT AWAKE IN BED DURING BEDSIDE SHIFT REPORT. NO C/O VOICED AT PRESENT TIME. WOUND VAC INTACT W/CONTINUOUS SUCTIONING AT 125 MMHG. CALL LIGHT IN REACH.
[2019-03-20 20:00] VITALS: BP 176/87
[2019-03-20 20:45] VITALS: BP 142/80
--- NOTE | 2019-03-20 20:45 | NUR ---
PT MEDICATED W/NORCO FOR C/O LUMBAR PAIN DESCRIBES THROBBING 04/03. PT REPOSITIONED FOR COMFORT. WILL MONITOR.
--- NOTE | 2019-03-20 21:30 | NUR ---
PT STATES THAT PRN NORCO WAS EFFECTIVE FOR PAIN RELIEF.
[2019-03-21] VITALS: BP 136/68
--- NOTE | 2019-03-21 04:38 | NUR ---
24 HR chart check completed.
--- NOTE | 2019-03-21 08:00 | NUR ---
Patient resting quietly with no c/o discomfort. Respirations easy and regular. Vital signs stable. No overt distress. EVAN WONG
--- NOTE | 2019-03-21 08:45 | NUR ---
PHYSICAL THERAPY Patient seen this am 1;1 for therapy visit and was resting supine in bed upon therapist arrival. Patient was very pleasant this morning, reporting chronic c/o LBP, 03/03 and presents with L LE wound vac. Patient remains NWB status on L LE and transfers supine to sit EOB with Min A and completes several SPT to BSC, demonstrating decreased safety awareness in maintaining NWB status. Patient instructed to use wh walker to promote increased standing posture and demonstrated a little improvement in her transfer technique. Patient also demonstrated Poor standing activity tolerance this session and returned to supine in bed with Min A. Patient would benefit from SNF to improve functional transfers / mobiilty while maintaining NWB status on L LE. Will continue per POC, total treatment time 16 minutes. Richard Montague, MACHINE STRIPPER CUTTER
--- NOTE | 2019-03-21 09:00 | NUR ---
OT NOTE Pt was seen this A.M. 1:1 for 30 minute OT session. Upon arrival pt was supine in bed. Pt identified by name and and had no complaints at this time. Pt transferred supine to sit EOB with Amol. Pt completed sit to stand transfer from bed level with modA X 2 and use of w/w for UE support. Educated pt on importance and techniques for maintaining NWB status. Pt had 50% carry over. Challenged pt's static standing tolerance needed for increased I in self care tasks and functional transfers. Pt was able to tolerate aprox 50 seconds at a time before sitting due to fatigue. Pt completed stand pivot from EOB <> bedside commode using personal technique which consisted of no use of w/w and pt being unable to maintain NWB. Educated pt on technique of use w/w and maintaining NWB. Pt was able to maintain aprox 50% of transfer. Pt transferred back into bed sit to supine with Amol. There she was left with call light in hand, tray table in place, and bed alarm activated for safety. Continue with rec D/C plan to SNF. JP Wilkinson/Mikie
--- NOTE | 2019-03-21 11:38 | NUR ---
Faxed clinical updated to [facility] for review; they state they are waiting to find out which IV ATB patient will be on from infectious disease prior to making a final decision. They need to make sure they are able to accomodate. Will follow.
[2019-03-21 12:00] VITALS: BP 150/66
--- NOTE | 2019-03-21 12:02 | NUR ---
24 HR/ENTIRE chart check completed.
[2019-03-21 16:00] VITALS: BP 151/77
[2019-03-21 20:00] VITALS: BP 106/53
[2019-03-22] VITALS: BP 130/94
[2019-03-22 06:34] LABS: BASO # 0.1 10*3/uL (0.0-0.1); BASO % 0.6 % (0.0-1.0); EOS # 0.2 10*3/uL (0.0-0.4); EOS % 2.1 % (1.0-4.0); HEMATOCRIT 40.4 % (37.0-47.0); HEMOGLOBIN 12.5 g/dl (12.0-16.0); LYMPH # 1.2 10*3/uL (1.3-4.4); LYMPH % 15.3 % (27.0-41.0); MEAN CELL VOLUME 92.9 fl (81.0-99.0); MEAN CORPUSCULAR HGB 28.7 pg (27.0-31.0); MEAN CORPUSCULAR HGB CONC 30.9 g/dl (33.0-37.0); MEAN PLATELET VOLUME 10.6 fl (9.6-12.3); MONO # 0.8 10*3/uL (0.1-1.0); MONO % 10.3 % (3.0-9.0); NEUT # 5.7 10*3/uL (2.3-7.9); NEUT % 70.9 % (47.0-73.0); PLATELET COUNT AUTOMATED 179 10*3/uL (130-400); RED BLOOD COUNT 4.35 10*6/uL (4.10-5.10); RED CELL DISTRI WIDTH 13.2 % (0-14.5)
[2019-03-22 06:45] LABS: BUN 14 mg/dl (7-24); CHLORIDE 107 mmol/L (98-107); CREATININE 0.95 mg/dL (0.55-1.02); POTASSIUM 4.4 mmol/L (3.5-5.1); SODIUM 140 mmol/L (136-145)
--- NOTE | 2019-03-22 07:25 | NUR ---
BEDSIDE REPORT RECIEVED, INTRODUCED SELF TO PATIENT, UPDATED WHITE BOARD, NO NEEDS VOICED AT THIS TIME
--- NOTE | 2019-03-22 07:41 | NUR ---
Faxed infectious disease progress note with final IV ATB and therapy notes. Asked [facility] to order wound vac and start precert. Waiting on auth.
[2019-03-22 08:00] VITALS: BP 134/71; BP 146/74
--- NOTE | 2019-03-22 08:00 | NUR ---
Patient resting quietly with no c/o discomfort. Respirations easy and regular. Vital signs stable. No overt distress. EVAN WONG
--- NOTE | 2019-03-22 08:09 | NUR ---
24 HR/ENTIRE chart check completed.
--- NOTE | 2019-03-22 09:00 | NUR ---
case management visits with patient, patient will be going to [facility] long-term when insurance precert has been obtained, case management will follow
--- NOTE | 2019-03-22 09:15 | NUR ---
PHYSICAL THERAPY Patient seen this am 1:1 for therapy visit and was sitting on BSC upon therapist arrival. Patient presented with L LE wound vac and remains NWB on L LE. Patient transfers sit to stand MOD A, completing SPT to EOB sit, MOD A, with use of wh walker standing support. Patient demonstrates increased difficulty maintaining NWB status and needed v/c to improve upright posture. Patient only 50% compliant with NWB status this session and was also able to complete seated B LE therex, all planes, x 20 reps each to increase LE strength. Patient returned to supine in bed and remained with call light, tray table, cell phone and bed alarm for safety. Will contnue per POC as tolerated, total treatment time 17 minutes. Richard Montague, POLICE RESERVES COMMANDER
--- NOTE | 2019-03-22 09:52 | NUR ---
OT NOTE Pt was seen this A.m. 1:1 for 25 minute OT session. Upon arrival pt was sitting upright on the bedside commode. Pt identified by name and and had complaints of 3/10 low back pain. Pt completed sit to stand from bedside commode with modA x 2 and use of w/w for UE support. Stand pivot completed from bedside commode to the EOB with Amol and use of w/w, constant verbal prompts provided throughout for sequencing and maintaining NWB status. Multiple sit to stand transfers completed from bed level with Amol X 2 and use of w/w. Challenged pt's static standing tolerance needed for increased I in self care tasks and functional transfers, pt was able to tolerate aprox 25 seconds at a time before sitting due to fatigue. While sitting EOB pt completed BUE towel exercises over all planes of motion with emphasis on triceps for 1 X 15 to increase UE strength needed for increased I in self care tasks and functional transfers. Pt was left sitting upright on the EOB with call light in hand, tray table in place, and phone in reach. Continue with rec D/C plan to SNF. JP Wilkinson/Mikie
[2019-03-22 12:00] VITALS: BP 153/48
--- NOTE | 2019-03-22 12:27 | NUR ---
Patient resting quietly with no c/o discomfort. Respirations easy and regular. Vital signs stable. No overt distress. EVAN WONG
--- NOTE | 2019-03-22 13:39 | NUR ---
ATTEMPTED TO CALL DR BAILEY AND GOT DR BHAT WHO WAS INFORMED THAT BOTH SURGERY AND DR DELGADO IN IR ARE VERY BUSY, AND AT THIS TIME CANNOT INSERT A PICC LINE.
--- NOTE | 2019-03-22 14:00 | NUR ---
DR BHAT INFORMED THAT DR DELGADO WILL ONLY INSERT A PICC LINE IF AN NURSE HAS ATTEMPTED FIRST, BUT THERE ARE NO NURSES FREE TO DO SO.
--- NOTE | 2019-03-22 14:30 | NUR ---
SURGERY WILL PUT PICC INSERTION ON FOR AM PER DONNA IN SURGERY.
[2019-03-22 16:00] VITALS: BP 160/65
[2019-03-22 20:00] VITALS: BP 127/55
--- NOTE | 2019-03-22 20:00 | NUR ---
[id number] RESTING IN BED. HEP LOCK INTACT TO LEFT ANTECUBITAL; SITE ASYMPTOMATIC. DRESSING DRY & INTACT TO LEFT FOOT; WOUND VAC INTACT. PT. VOICES NO C/O AT THIS TIME. NO DISTRESS NOTED. CALL LIGHT WITHIN REACH.
--- NOTE | 2019-03-22 22:20 | NUR ---
MEDICATED WITH [facility] FOR C/O BACK PAIN RATED A 5/10.
[2019-03-23] VITALS: BP 156/86
[2019-03-23 08:00] VITALS: BP 145/73
--- NOTE | 2019-03-23 08:00 | NUR ---
Patient resting quietly with no c/o discomfort. Respirations easy and regular. Vital signs stable. No overt distress. EVAN WONG
--- NOTE | 2019-03-23 08:37 | NUR ---
Patient received auth for [facility]. [facility] is sending a WC van to transport patient at 12:00 noon. Hospitalists office and nursing notified.
--- NOTE | 2019-03-23 10:07 | NUR ---
0645- Per pt. current RN a picc consent has not been signed yet. Notification given that a picc can not be inserted without a signed consent from physician.
[2019-03-23] MEDS ORDERED: VANCO 1.251.25 GM/25 IV (10:14)
--- NOTE | 2019-03-23 10:15 | NUR ---
L PICC LINE INSERTED BY DR EARL.
--- NOTE | 2019-03-23 10:41 | NUR ---
Transportation rescheduled for 1 PM with WC van via [place].
--- NOTE | 2019-03-23 11:00 | NUR ---
DR FRANCOIS HERE TO D/C L FOOT WOUND VAC, PICTURE TAKEN. HE WILL APPLY WET TO DRY FOR DISCHARGE TO [facility].
[2019-03-23 12:00] VITALS: BP 141/75
--- NOTE | 2019-03-23 13:05 | NUR ---
Discharge instructions reviewed with patient. Patient receptive and verbalizes understanding. Documentation given to transport personel for [facility] Follow-up care arranged. Written instructions given to patient/ SCARLET DELACRUZ
--- NOTE | 2019-03-23 13:30 | NUR ---
REPORT CALLED TO DELMA PINEDA RN ANSWERED.
--- NOTE | 2019-03-23 17:02 | NUR ---
PHYSICAL THERAPY CO-SIGN I approve of the Phyical Therapy notes written above. BRYAN LEVI PT
--- NOTE | 2019-03-24 07:57 | NUR ---
OCCUPATIONAL THERAPY CO-SIGN I approve of the Occupational Therapy notes written above. ANNETTA WRIGHT
[2019-04-27 11:05] LABS: ACID FAST CULTURE Negative (.)
== END 2019-03-23 13:05 | disposition other institution (70) | DRG 477 ==
LOC: ED 11:13 → EDHOLD 12:39 → 4E 12:39
PROVIDERS: Family Medicine; Nurse Practitioner Family; Podiatrist; ADMIT Internal Medicine
DX: M00.9 Pyogenic arthritis, unspecified (principal); N17.0 Acute kidney failure with tubular necrosis; L03.116 Cellulitis of left lower limb; E44.0 Moderate protein-calorie malnutrition; L02.612 Cutaneous abscess of left foot; L97.429 Non-pressure chronic ulcer of left heel and midfoot with unspecified severity; K60.3 Anal fistula; E87.8 Other disorders of electrolyte and fluid balance, not elsewhere classified; R29.6 Repeated falls; E03.9 Hypothyroidism, unspecified; E78.5 Hyperlipidemia, unspecified; M41.9 Scoliosis, unspecified; E55.9 Vitamin D deficiency, unspecified; I10 Essential (primary) hypertension; G62.9 Polyneuropathy, unspecified; E66.01 Morbid (severe) obesity due to excess calories; I48.91 Unspecified atrial fibrillation; Z88.0 Allergy status to penicillin; Z98.42 Cataract extraction status, left eye; Z98.41 Cataract extraction status, right eye; Z90.710 Acquired absence of both cervix and uterus; Z80.8 Family history of malignant neoplasm of other organs or systems; Z82.49 Family history of ischemic heart disease and other diseases of the circulatory system; Z80.6 Family history of leukemia; Z79.890 Hormone replacement therapy; Z79.899 Other long term (current) drug therapy; Z68.36 Body mass index [BMI] 36.0-36.9, adult

== ENCOUNTER 2020-07-21 20:01 | Emergency (ER) | payer MEDICARE ==
[~2020-07-21] VITALS: Ht 167.6 cm; Wt 95.3 kg
[~2020-07-21 20:01] MED LIST changes: +VANCO 1.251.25 GM/25 IV
[2020-07-21 20:53] LABS: BASO # 0.1 10*3/uL (0.0-0.1); BASO % 1.3 % (0.0-1.0); EOS # 0.1 10*3/uL (0.0-0.4); EOS % 1.5 % (1.0-4.0); HEMATOCRIT 48.5 % (37.0-47.0); LYMPH # 1.3 10*3/uL (1.3-4.4); LYMPH % 26.2 % (27.0-41.0); MEAN CORPUSCULAR HGB 29.8 pg (27.0-31.0); MEAN CORPUSCULAR HGB CONC 31.8 g/dl (33.0-37.0); MEAN PLATELET VOLUME 10.2 fl (9.6-12.3); MONO # 0.6 10*3/uL (0.1-1.0); MONO % 12.4 % (3.0-9.0); NEUT # 2.8 10*3/uL (2.3-7.9); NEUT % 58.4 % (47.0-73.0); PLATELET COUNT AUTOMATED 149 10*3/uL (130-400); RED BLOOD COUNT 5.16 10*6/uL (4.10-5.10); RED CELL DISTRI WIDTH 13.7 % (0-14.5); WHITE BLOOD COUNT 4.8 10*3/uL (4.8-10.8)
[2020-07-21 21:11] LABS: ALBUMIN 3.7 gm/dl (3.1-4.5); ALKALINE PHOSPHATASE 113 U/L (45-117); BUN 24 mg/dl (7-24); CHLORIDE 104 mmol/L (98-107); CREATININE 0.94 mg/dL (0.55-1.02); POTASSIUM 4.1 mmol/L (3.5-5.1); SGOT/AST 20 IU/L (3-35); SGPT/ALT 29 U/L (12-78); SODIUM 138 mmol/L (136-145); TOTAL PROTEIN 7.3 gm/dL (6.4-8.2)
[2020-07-21 21:13] LABS: TROPONIN I < 0.015 ng/ml (<0.045)
== END 2020-07-22 01:45 | disposition short-term general hospital (02) ==
LOC: ED 20:01
PROVIDERS: Emergency Medicine
DX: R20.0 Anesthesia of skin (principal); R79.1 Abnormal coagulation profile; I10 Essential (primary) hypertension; E03.9 Hypothyroidism, unspecified; E78.5 Hyperlipidemia, unspecified; E66.1 Drug-induced obesity; Z88.0 Allergy status to penicillin; Z79.899 Other long term (current) drug therapy

== ENCOUNTER → 2021-10-20 | Outpatient (CLI) | payer MEDICARE | LOC: CT 10:48 | PROVIDERS: ATTEND Psychiatry & Neurology Clinical Neurophysiology | DX: M48.02 Spinal stenosis, cervical region (principal); M47.812 Spondylosis without myelopathy or radiculopathy, cervical region; M50.31 Other cervical disc degeneration, high cervical region; M50.30 Other cervical disc degeneration, unspecified cervical region; M50.123 Cervical disc disorder at C6-C7 level with radiculopathy; M50.122 Cervical disc disorder at C5-C6 level with radiculopathy; M50.121 Cervical disc disorder at C4-C5 level with radiculopathy; I63.432 Cerebral infarction due to embolism of left posterior cerebral artery; I63.532 Cerebral infarction due to unspecified occlusion or stenosis of left posterior cerebral artery; R26.2 Difficulty in walking, not elsewhere classified; M99.01 Segmental and somatic dysfunction of cervical region; Z98.890 Other specified postprocedural states; Z86.79 Personal history of other diseases of the circulatory system ==